=== PATIENT | female | born 1960 | race Caucasian/White ===

== ENCOUNTER 2025-04-21 00:28 | Emergency (ER) | payer MEDICAID ==
[~2025-04-21] VITALS: Ht 160 cm; Wt 99.0 kg
[2025-04-21 00:32] VITALS: O2SAT 98
[2025-04-21] MEDS: ACETAMINOPHEN 500MG TABLET PO ONE (01:01)
[2025-04-21] MEDS: TETANUS, DIPHTHERIA, PERTUSSIS VAC/PF 0.5ML (>10YR OLD) IM ONE (01:02)
[2025-04-21] MEDS: LIDOCAINE HCL 1% 20ML VIAL INFIL ONE (01:02)
[2025-04-21] MEDS ORDERED: TOPUD MT (03:16)
[2025-04-21 03:30] VITALS: BP 117/61; PULSE 80; RESP 18; TEMP 36.6; O2SAT 97
== END 2025-04-21 03:45 | disposition home or self-care (01) ==
LOC: ER 00:28
DX: S01.01XA Laceration without foreign body of scalp, initial encounter (principal); X58.XXXA Exposure to other specified factors, initial encounter; Y93.89 Activity, other specified; Y92.89 Other specified places as the place of occurrence of the external cause; Y99.8 Other external cause status; E11.9 Type 2 diabetes mellitus without complications; E78.00 Pure hypercholesterolemia, unspecified; F10.129 Alcohol abuse with intoxication, unspecified
CPT/HCPCS: 70450; 70486; 72125; 90715; 12015; 90471; 99285; J2003; Z7610